=== PATIENT | female | born 1975 | race Caucasian/White ===

== ENCOUNTER 2017-04-10 15:01 | Emergency (ER) | payer MEDICAID ==
[~2017-04-10] VITALS: Ht 172.7 cm; Wt 123.0 kg
[~2017-04-10 15:01] MED LIST: ADDE30XR PO; CLON1TAB PO; LISD60 PO; MELO15TA2 PO; PERC5TAB12 PO
[2017-04-10 15:34] VITALS: BP 151/89; PULSE 110; RESP 16; TEMP 98.6; O2SAT 98
[2017-04-10] MEDS ORDERED: CLON1TAB PO (15:46)
[2017-04-10] MEDS ORDERED: ADDE30TA PO (15:46)
--- NOTE | 2017-04-10 16:04 | PD ---
HPI . Right knee pain Chief Complaint: Injury Time Seen by Provider: 15:49 Travel History International Travel<30 days: No Contact w/Intl Traveler<30days: No Traveled to known affect area: No History of Present Illness HPI This patient presents with right knee pain. She states that she had a ligamentous injury of her knee approximately a year ago. She states that she has had physical therapy but no surgery. She will intermittently have increased pain in her knee. She states that she has had increased pain and swelling since yesterday and that she turned and her knee twisted yesterday. She states she already had some pain and swelling when she twisted. She rates her pain as 8/10. Pain is exacerbated by movement and standing. PFSH Past Medical History ADHD: Yes Bipolar Disorder: Yes Anxiety: Yes Depression: Yes Diabetes: No Diminished Hearing: No GERD: Yes Neurologic: Yes (SCIATICA AND PREVIOUS FIBULA FRACTURE) Respiratory: Yes (exercised induced asthma) Migraines: Yes Influenza Vaccination: No ?: Not LMP: 3 weeks ago : 1 Para: 1 Past Surgical History Section: Yes (2002) Social History Alcohol Use: No Tobacco Use: No Substance Use: No Allergies-Medications (Allergen,Severity, Reaction): Coded Allergies: egg (Unverified Allergy, Severe, CAN'T BREATH, 04/10/17) cat dander (Unverified Allergy, Mild, eyes water, 04/10/17) propoxyphene (Unverified Adverse Reaction, Intermediate, Nausea/Vomiting, 04/10/17) acetaminophen (Unverified Adverse Reaction, Mild, Nausea/Vomiting, 04/10/17 ) hydrocodone (Unverified Adverse Reaction, Mild, Nausea/Vomiting, 04/10/17) Reported Meds & Prescriptions Reported Meds & Active Scripts Active Reported Clonazepam 1 Mg Tab 1 Mg PO BID PRN Adderall (Amphetamine-Dextroamphetamine) 30 Mg Tab 30 Mg PO TID PRN Avoid late evening doses. Space doses at least 4 to 6 hours if more than once/day dosing. Review of Systems Musculoskeletal: Positive: Arthralgias Physical Exam Narrative GENERAL: Awake and alert and in no acute distress. SKIN: Warm and dry. HEAD: Atraumatic. Normocephalic. EYES: Pupils equal and round. NECK: Trachea midline. CARDIOVASCULAR: Regular rate and rhythm. RESPIRATORY: No accessory muscle use. MUSCULOSKELETAL: No obvious deformities. Right knee tenderness. No joint effusion. Overlying skin is not red or hot. NEUROLOGICAL: Awake and alert. No obvious cranial nerve deficits. Motor grossly within normal limits. Normal speech. PSYCHIATRIC: Appropriate mood and affect; insight and judgment normal. Data Data Last Documented VS Vital Signs Date Time Temp Pulse Resp B/P (MAP) Pulse Ox O2 Delivery O2 Flow Rate FiO2 04/10/17 15:34 98.6 110 16 151/89 (109) 98 Orders Orders Knee, Complete (4vws) (04/10/17 15:49) [facility] Medical Decision Making Medical Screen Exam Complete: Yes Emergency Medical Condition: Yes Differential Diagnosis Differential diagnosis of joint pain includes but is not limited to arthritis, gout, sprain/strain, fracture, dislocation Narrative Course This patient presents with acute exacerbation of chronic right knee problems. X-ray of her knee is negative for acute problem. The x-ray was independently viewed bilaterally. Diagnosis Primary Impression: Right knee pain Qualified Codes: M25.561 - Pain in right knee; G89.29 - Other chronic pain Patient Instructions: General Instructions, Knee Pain (ED) Med/Other Pt SpecificInfo: Prescription(s) given Scripts Tramadol (Ultram) 50 Mg Tab 50 MG PO Q4H Y for PAIN, #12 TAB 0 Refills Prov: Danii Valdes MD 04/10/17 Disposition: 01 DISCHARGE HOME Condition: Stable Danii Valdes MD Apr 10, 2017 16:04
--- NOTE | 2017-04-10 16:35 | RADRPT ---
EXAM DATE/TIME: 04/10/2017 16:05 [facility] COMPARISON: No previous studies available for comparison. INDICATIONS : Fell, complains of right knee pain. Patient states torn ACL of right knee 1 year ago. MEDICAL HISTORY : None. SURGICAL HISTORY : None. ENCOUNTER: Initial ACUITY: 1 day PAIN SCORE: 10/10 LOCATION: Right knee FINDINGS: No definite fractures, or dislocations are identified. No definite lytic or sclerotic lesion is seen . The joint spaces are well maintained. CONCLUSION: Unremarkable study. Judith Izquierdo MD on April 10, 2017 at 16:22 Board Certified Radiologist. This report was verified electronically.
[2017-04-10] MEDS ORDERED: ULTR50TA5 PO (16:41)
== END 2017-04-10 16:57 | disposition home or self-care (01) ==
LOC: PHEFT 15:01
DX: M25.561 Pain in right knee (principal); G89.29 Other chronic pain; K21.9 Gastro-esophageal reflux disease without esophagitis
CPT/HCPCS: 73564; 99283

== ENCOUNTER 2017-07-22 09:17 | Emergency (ER) | payer MEDICAID ==
[~2017-07-22] VITALS: Ht 172.7 cm; Wt 121.5 kg
[~2017-07-22 09:17] MED LIST changes: +ADDE30TA PO; -ADDE30XR PO; -LISD60 PO; -MELO15TA2 PO; -PERC5TAB12 PO; +TRAM50 PO
[2017-07-22 09:23] VITALS: BP 189/100; PULSE 85; RESP 16; TEMP 98.5; O2SAT 100
--- NOTE | 2017-07-22 09:44 | PD ---
HPI Chief Complaint: Chest Pain Time Seen by Provider: 09:27 Travel History International Travel<30 days: No Contact w/Intl Traveler<30days: No Traveled to known affect area: No History of Present Illness HPI 42yo F with PMH of anxiety presents to the ED with c/o midsternal chest pain for 1 week. Pt said it has a dull pulling sensation and is constantly there. Associated with sob and worst with coughing and lying down. Pain is moderate and nonradiating. Had similar pain before. Pt thinks it is anxiety because she feels nervous about having right knee surgery soon. Denies any fever, history of DVT/PE, hemoptysis, OCP use, cig smoking, recent surgery or long travel, vomiting, abdominal pain, focal weakness or numbness. Denies any family history of sudden cardiac . PFSH Past Medical History ADHD: Yes Bipolar Disorder: Yes Anxiety: Yes Depression: Yes Diabetes: No Diminished Hearing: No GERD: Yes Neurologic: Yes (SCIATICA AND PREVIOUS FIBULA FRACTURE) Respiratory: Yes (exercised induced asthma) Migraines: Yes ?: Unknown LMP: 06/07/17 : 1 Para: 1 Past Surgical History Section: Yes (2002) Social History Alcohol Use: No Tobacco Use: No Substance Use: No Allergies-Medications (Allergen,Severity, Reaction): Coded Allergies: egg (Unverified Allergy, Severe, CAN'T BREATH, 07/22/17) cat dander (Unverified Allergy, Mild, eyes water, 07/22/17) propoxyphene (Unverified Adverse Reaction, Intermediate, Nausea/Vomiting, 07/22/17) acetaminophen (Unverified Adverse Reaction, Mild, Nausea/Vomiting, 07/22/17 ) hydrocodone (Unverified Adverse Reaction, Mild, Nausea/Vomiting, 07/22/17) Reported Meds & Prescriptions Reported Meds & Active Scripts Active Ibuprofen 600 Mg Tab 600 Mg PO Q8HR PRN Reported Vyvanse (Lisdexamfetamine Dimesylate) 70 Mg Cap 70 Mg PO DAILY Clonazepam 1 Mg Tab 1 Mg PO BID PRN Review of Systems Except as stated in HPI: all other systems reviewed are Neg Physical Exam Narrative GENERAL: 42yo F crying. SKIN: Focused skin assessment warm/dry. HEAD: Atraumatic. Normocephalic. EYES: Pupils equal and round. No scleral icterus. No injection or drainage. ENT: No nasal bleeding or discharge. Mucous membranes pink and moist. NECK: Trachea midline. No JVD. CARDIOVASCULAR: Regular rate and rhythm. No murmur appreciated. RESPIRATORY: No accessory muscle use. Clear to auscultation. Breath sounds equal bilaterally. CHEST WALL: No rash. No ttp. GASTROINTESTINAL: Abdomen soft, non-tender, nondistended. MUSCULOSKELETAL: No obvious deformities. No clubbing. No cyanosis. No edema. NEUROLOGICAL: Awake and alert. No obvious cranial nerve deficits. Motor grossly within normal limits. Normal speech. PSYCHIATRIC: Anxious appearing. Data Data Last Documented VS Vital Signs Date Time Temp Pulse Resp B/P (MAP) Pulse Ox O2 Delivery O2 Flow Rate FiO2 07/22/17 10:24 90 19 164/85 (111) 97 Room Air 07/22/17 09:23 98.5 Orders Orders Electrocardiogram (07/22/17 09:31) Basic Metabolic Panel (Bmp) (07/22/17 09:37) Complete Blood Count With Diff (07/22/17 09:37) Prothrombin Time / Inr (Pt) (07/22/17 09:37) Act Partial Throm Time (Ptt) (07/22/17 09:37) Troponin I (07/22/17 09:37) Chest, Single Ap (07/22/17 09:37) Lorazepam (Ativan) (07/22/17 09:45) Ed Discharge Order (07/22/17 10:47) Labs Laboratory Tests Test 07/22/17 09:44 White Blood Count 6.8 TH/MM3 Red Blood Count 4.56 MIL/MM3 Hemoglobin 11.2 GM/DL Hematocrit 35.0 % Mean Corpuscular Volume 76.9 FL Mean Corpuscular Hemoglobin 24.5 PG Mean Corpuscular Hemoglobin Concent 31.9 % Red Cell Distribution Width 16.7 % Platelet Count 349 TH/MM3 Mean Platelet Volume 8.0 FL Neutrophils (%) (Auto) 57.2 % Lymphocytes (%) (Auto) 25.1 % Monocytes (%) (Auto) 6.9 % Eosinophils (%) (Auto) 8.0 % Basophils (%) (Auto) 2.8 % Neutrophils # (Auto) 3.9 TH/MM3 Lymphocytes # (Auto) 1.7 TH/MM3 Monocytes # (Auto) 0.5 TH/MM3 Eosinophils # (Auto) 0.5 TH/MM3 Basophils # (Auto) 0.2 TH/MM3 CBC Comment AUTO DIFF Differential Comment AUTO DIFF CONFIRMED Platelet Estimate NORMAL Platelet Morphology Comment NORMAL Stomatocytes 1+ Blood Urea Nitrogen 20 MG/DL Creatinine 0.87 MG/DL Random Glucose 94 MG/DL Calcium Level 8.2 MG/DL Sodium Level 137 MEQ/L Potassium Level 4.5 MEQ/L Chloride Level 106 MEQ/L Carbon Dioxide Level 24.2 MEQ/L Anion Gap 7 MEQ/L Estimat Glomerular Filtration Rate 71 ML/MIN Troponin I LESS THAN 0.02 NG/ML MDM Medical Decision Making Medical Screen Exam Complete: Yes Emergency Medical Condition: Yes Interpretation(s) EKG: NSR 87bpm. Normal axis. TWI III. No ST segment elevation or depression. Differential Diagnosis Anxiety vs. GERD vs. pneumonia vs. pericarditis Narrative Course 42yo F with atypical chest pain for 1 week. Pt started crying when she spoke about how her mother this year and she has been under a lot of stress. Pt is PERC negative. Labs reviewed, no leukocytosis. Troponin negative. CXR showed compensated cardiomegaly otherwise negative. Pt given ativan 1mg PO and reevaluated at bedside. Said she feels much better and less anxious. Pain has improved as well. Do not think this is cardiac. Pt has no cardiac risk factors. Instructed pt to follow up with PMD. Diagnosis Primary Impression: Atypical chest pain Patient Instructions: General Instructions Departure Forms: Tests/Procedures Additional Instructions: Please follow up with your primary care physician in 3-7 days. Return to the ED if symptoms worsen. Med/Other Pt SpecificInfo: Prescription(s) given Scripts Ibuprofen (Ibuprofen) 600 Mg Tab 600 MG PO Q8HR Y for PAIN, #20 TAB 0 Refills Prov: RodriguezSarah meneses 07/22/17 Disposition: 01 DISCHARGE HOME Condition: Stable Sarah Rodriguez DO Jul 22, 2017 09:43
[2017-07-22] MEDS ORDERED: LORazepam 1 MG TAB PO ONE (09:45)
[2017-07-22] MEDS ORDERED: LISD70 PO (09:45)
[2017-07-22 09:53] LABS: AUTOMATED NEUTROPHIL # 3.9 TH/MM3 (1.8-7.7); BASOPHIL # 0.2 TH/MM3 (0-0.2); BASOPHIL % 2.8 % (0.0-2.0); EOSINOPHIL # 0.5 TH/MM3 (0-0.4); LYMPH % 25.1 % (9.0-44.0); LYMPHOCYTE # 1.7 TH/MM3 (1.0-4.8); MEAN CELL VOLUME 76.9 FL (80.0-100.0); MEAN CORPUSCULAR HEMOGLOBIN 24.5 PG (27.0-34.0); MEAN CORPUSCULAR HGB CONC 31.9 % (32.0-36.0); MONO % 6.9 % (0.0-8.0); NEUT % 57.2 % (16.0-70.0); PLATELET COUNT 349 TH/MM3 (150-450); RED BLOOD COUNT 4.56 MIL/MM3 (4.00-5.30); RED CELL DISTRIBUTION WIDTH 16.7 % (11.6-17.2); WHITE BLOOD COUNT 6.8 TH/MM3 (4.0-11.0)
[2017-07-22 10:04] LABS: ANION GAP 7 MEQ/L (5-15); BICARBONATE 24.2 MEQ/L (21.0-32.0); BLOOD UREA NITROGEN 20 MG/DL (7-18); CHLORIDE 106 MEQ/L (98-107); SODIUM (NA) 137 MEQ/L (136-145)
[2017-07-22 10:08] LABS: GLOMERULAR FILTRATION RATE 71 ML/MIN (>89)
[2017-07-22 10:10] LABS: POTASSIUM 4.5 MEQ/L (3.5-5.1)
--- NOTE | 2017-07-22 10:16 | RADRPT ---
EXAM DATE/TIME: 07/22/2017 10:00 [facility] COMPARISON: No previous studies available for comparison. INDICATIONS : Chest pain & shortness of breath. MEDICAL HISTORY : Gastroesophageal reflux disease. SURGICAL HISTORY : section. ENCOUNTER: Initial ACUITY: 1 week PAIN SCORE: 6/10 LOCATION: chest FINDINGS: The lungs are clear. The heart is minimally enlarged. The pulmonary vascularity is normal. There is n o evidence for infiltrate or failure. The portion of the bony skeleton visualized is unremarkable. CONCLUSION: Compensated cardiomegaly otherwise negative Timo Baxter MD FACR on July 22, 2017 at 10:14 Board Certified Radiologist. This report was verified electronically.
[2017-07-22 10:24] VITALS: BP 164/85; PULSE 90; RESP 19; O2SAT 97
[2017-07-22 10:24] LABS: HEMO FLAGS AUTO DIFF
[2017-07-22 10:41] LABS: PLATELET ESTIMATE SMEAR NORMAL (NORMAL); PLATELET MORPHOLOGY NORMAL (NORMAL); SCAN/DIFF AUTO DIFF CONFIRMED; STOMATOCYTES 1+ (NORMAL)
[2017-07-22] MEDS ORDERED: IBUP-232 PO (10:47)
[2017-07-22 10:49] LABS: APTT (PATIENT) 25.9 SEC (24.3-30.1)
[2017-07-22 11:04] VITALS: BP 162/80
--- NOTE | 2017-07-22 14:44 | EKG ---
Date Performed: 07/22/2017 Time Performed: 09:40:17 PTAGE: 42 years EKG: Sinus rhythm NORMAL ECG NO PREVIOUS TRACING DOCTOR: Marianne Jackson Interpretating Date/Time 07/22/2017 14:40:53
== END 2017-07-22 11:06 | disposition home or self-care (01) ==
LOC: PHED 09:17
DX: R07.89 Other chest pain (principal); R06.02 Shortness of breath; F41.9 Anxiety disorder, unspecified; F31.9 Bipolar disorder, unspecified
CPT/HCPCS: 71010; 80048; 84484; 85025; 85610; 85730; 93005; 99285